=== PATIENT | male | born 1950 | race African-American/Black ===

== ENCOUNTER 2025-01-22 19:51 | Emergency (ER) | payer MEDICARE ==
[~2025-01-22] VITALS: Ht 182.9 cm; Wt 85.0 kg
[2025-01-22 20:00] VITALS: O2SAT 99
[2025-01-22] MEDS ORDERED: PIPERACILLIN/TAZO 3.375G/50ML 50 ML IV ONE (20:30)
[2025-01-22] MEDS ORDERED: SODIUM CHLORIDE 0.9% 1,000 ML IV ONE ×3 (20:30→23:00)
[2025-01-22] MEDS ORDERED: VANCOMYCIN 1G PREMIX 200 ML IV ONE (20:30)
[2025-01-22 22:06] LABS: BASOPHILS % 0.4 % (0.0-2.0); HEMATOCRIT. 31.9 % (42.0-52.0); HEMOGLOBIN. 10.2 g/dL (14.0-18.0); LYMPHOCYTES % 15.2 % (20.0-50.0); MEAN CORPUSCULAR HEMOGLOBIN 27.1 pg (28.0-32.0); MEAN CORPUSCULAR HGB CONC 31.8 g/dL (31.0-37.0); MEAN CORPUSCULAR VOLUME 85.1 fL (80.0-94.0); MEAN PLATELET VOLUME 7.2 fl (7.4-10.4); MONOCYTES % 10.3 % (2.0-8.0); NEUTROPHILS % 73.1 % (40.0-76.0); PLATELET 491 x1000/uL (130-400); RED BLOOD CELL COUNT 3.75 mill/uL (4.7-6.1); RED CELL DISTRIBUTION WIDTH 16.9 % (11.6-14.6); WHITE BLOOD COUNT 10.4 x1000/uL (4.5-11.0)
[2025-01-22 22:07] LABS: CHLORIDE 101 mEq/L (98-107); POTASSIUM 4.3 mEq/L (3.5-5.1); SODIUM 139 mEq/L (136-145)
[2025-01-22 22:08] LABS: CALCIUM 10.2 mg/dL (8.7-10.4); CARBON DIOXIDE 26 mEq/L (21-32)
[2025-01-22 22:13] LABS: CREATININE 2.2 mg/dL (0.6-1.3); GLUCOSE 137 mg/dL (70-105); UREA NITROGEN BLOOD 25 mg/dL (9-23)
[2025-01-22 22:14] LABS: LACTATE DEHYDROGENASE 190 IU/L (120-246)
[2025-01-22 22:15] LABS: ALANINE AMINOTRANSFERASE 16 IU/L (10-49); ALBUMIN 4.3 g/dL (3.2-4.8); ASPARTATE AMINOTRANSFERASE 19 IU/L (<34); BILIRUBIN TOTAL 0.3 mg/dL (0.1-1.0); CREATINE KINASE 53 IU/L (46-171); PROTEIN TOTAL 8.5 g/dL (6.0-8.3)
[2025-01-22 22:21] LABS: INR 1.1; PROTHROMBIN TIME 11.5 sec (9.6-11.0)
[2025-01-22 22:26] LABS: BILIRUBIN DIRECT < 0.1 mg/dL (<=3.0)
[2025-01-22] MEDS ORDERED: CLONIDINE 0.1MG TABLET PO PRN (22:45)
[2025-01-22] MEDS ORDERED: IPRATROPIUM/ALBUTEROL 0.5-3(2.5)MG/3ML NEB NEB PRN (22:45)
[2025-01-22] MEDS ORDERED: ZOLPIDEM TARTRATE 5MG TABLET PO PRN (22:45)
[2025-01-22] MEDS ORDERED: ONDANSETRON HCL 4MG/2ML INJ IV PRN (22:45)
[2025-01-22] MEDS ORDERED: HYDROCODONE/ACETAMINOPHEN 5/325MG TABLET PO PRN (22:45)
[2025-01-22] MEDS ORDERED: ACETAMINOPHEN 325MG TABLET PO PRN (22:45)
[2025-01-22] MEDS ORDERED: VANCOMYCIN 1.5GM/250ML IV NR (22:45)
[2025-01-22] MEDS ORDERED: SODIUM CHLORIDE 0.9% 1,000 ML IV SCH (22:45)
[2025-01-22 22:46] VITALS: TEMP 37.2; O2SAT 98
[2025-01-22 22:58] VITALS: BP 134/72; PULSE 78; RESP 14; TEMP 98.9
[2025-01-23] MEDS ORDERED: PIPERACILLIN/TAZO 3.375G/50ML 50 ML IV SCH (03:00)
[2025-01-23] MEDS ORDERED: ENOXAPARIN 40MG/0.4ML SYR SUBCUT SCH (09:00)
[2025-01-23] MEDS ORDERED: PANTOPRAZOLE SODIUM 40 MG/VIAL IV SCH (09:00)
== END 2025-01-23 05:39 | disposition left against medical advice (07) ==
LOC: ER 19:51 → EDBEDREQ 20:32 → EDBEDREQTM 22:02 → CMPBEDREQ 01-23 01:00 → ER 01-23 05:39
DX: I96 Gangrene, not elsewhere classified (principal); Z85.528 Personal history of other malignant neoplasm of kidney; Z85.46 Personal history of malignant neoplasm of prostate
CPT/HCPCS: 99284; 80076; 80048; 82550; 83605; 83615; 85025; 85610; 86850; 86900; 86901; 87040; 36415; 84145; 73630; J7030